=== PATIENT | female | born 1960 | race Caucasian/White ===

== ENCOUNTER 2016-05-25 10:56 | Inpatient (IN) | payer MEDICARE, MEDICAID ==
[~2016-05-25] VITALS: Ht 162.6 cm; Wt 90.2 kg
[~2016-05-25 10:56] MED LIST: FERR325T20 PO; PARO20TA4 PO; RANI150C PO
[2016-05-25 13:20] VITALS: BP 119/73
[2016-05-25 13:30] VITALS: BP 119/73
[2016-05-25 13:35] VITALS: BP 119/73
[2016-05-25] MEDS ORDERED: DOCUSATE 100 MG CAPSULE PO PRN (15:00)
[2016-05-25] MEDS: PLEASE ENTER HEIGHT AND WEIGHT MC SCH ×2 (15:00→16:22)
[2016-05-25] MEDS ORDERED: ONDANSETRON 2MG/ML, 2ML IVP PRN (15:00)
[2016-05-25 18:43] VITALS: BP 116/72
[2016-05-25] MEDS: FERROUS SULFATE 325 MG TABLET PO SCH (20:50)
[2016-05-26 03:54] VITALS: BP 118/71
[2016-05-26 05:39] LABS: HEMOGLOBIN 9.5 g/dL (11.7-16.4)
[2016-05-26 06:07] LABS: ASPARTATE AMINO TRANSFERASE 8 U/L (15-37); BLOOD UREA NITROGEN 54 mg/dL (7-18); TOTAL IRON BINDING CAPACITY 153 mcg/dL (250-450)
[2016-05-26 06:48] VITALS: BP 101/67
[2016-05-26] MEDS: PLEASE ENTER HEIGHT AND WEIGHT MC SCH ×2 (07:00→10:24)
[2016-05-26] MEDS: FERROUS SULFATE 325 MG TABLET PO SCH ×2 (07:47→20:35)
[2016-05-26] MEDS: ENOXAPARIN 30 MG/0.3 ML SQ SCH (07:48)
[2016-05-26] MEDS: FAMOTIDINE 20 MG TABLET PO SCH (07:48)
[2016-05-26] MEDS: PAROXETINE 20 MG TABLET PO SCH (07:48)
[2016-05-26] MEDS ORDERED: ARANESP 60 MCG/ML **ESRD SQ SCH (10:30)
[2016-05-26] MEDS ORDERED: NALOXONE 1 MG/ML, 2ML ONE (10:33)
[2016-05-26] MEDS ORDERED: FENTANYL PF 100 MCG/2ML ONE (10:33)
[2016-05-26] MEDS ORDERED: MIDAZOLAM 1 MG/ML, 5ML ONE (10:33)
[2016-05-26] MEDS ORDERED: FLUMAZENIL 0.1 MG/1 ML, 5ML ONE (10:34)
[2016-05-26] MEDS ORDERED: LIDOCAINE 2%, 20ML ONE (10:41)
[2016-05-26] MEDS ORDERED: CEFAZOLIN PMX 1GM/50ML 50 ML ONE (10:56)
[2016-05-26 12:45] VITALS: BP 125/79
[2016-05-26 13:53] LABS: HEP B SURF. AB 3.9 mIU/mL (0.0-10.0)
[2016-05-26 19:34] VITALS: BP 93/67
[2016-05-27 00:50] VITALS: BP 103/69
[2016-05-27 05:25] LABS: BLOOD UREA NITROGEN 39 mg/dL (7-18)
[2016-05-27 05:31] LABS: ASPARTATE AMINO TRANSFERASE 9 U/L (15-37); TOTAL IRON BINDING CAPACITY 176 mcg/dL (250-450)
[2016-05-27 06:45] VITALS: BP 106/74
[2016-05-27] MEDS: ENOXAPARIN 30 MG/0.3 ML SQ SCH (08:53)
[2016-05-27] MEDS: PAROXETINE 20 MG TABLET PO SCH (08:53)
[2016-05-27] MEDS: IRON SUCROSE COMPLEX 100MG/5ML IV SCH (08:53)
[2016-05-27] MEDS: FAMOTIDINE 20 MG TABLET PO SCH (08:53)
[2016-05-27 12:54] VITALS: BP 110/53
[2016-05-27 18:35] VITALS: BP 90/63
[2016-05-28 00:09] VITALS: BP 91/66
[2016-05-28 05:46] LABS: HEMOGLOBIN 10.9 g/dL (11.7-16.4)
[2016-05-28 05:58] LABS: ASPARTATE AMINO TRANSFERASE 9 U/L (15-37); BLOOD UREA NITROGEN 28 mg/dL (7-18)
[2016-05-28 06:48] VITALS: BP 93/66
[2016-05-28] MEDS: PAROXETINE 20 MG TABLET PO SCH (08:41)
[2016-05-28] MEDS: IRON SUCROSE COMPLEX 100MG/5ML IV SCH (08:41)
[2016-05-28] MEDS: ENOXAPARIN 30 MG/0.3 ML SQ SCH (08:41)
[2016-05-28] MEDS: FAMOTIDINE 20 MG TABLET PO SCH (08:41)
[2016-05-28] MEDS: HYDROcodone/APAP 5/325 TABLET PO PRN (09:14)
[2016-05-28 13:50] VITALS: BP 85/54
[2016-05-28 20:00] VITALS: BP 93/60
[2016-05-29 01:43] VITALS: BP 102/70
[2016-05-29 05:17] LABS: HEMOGLOBIN 10.6 g/dL (11.7-16.4)
[2016-05-29 05:33] LABS: BLOOD UREA NITROGEN 25 mg/dL (7-18)
[2016-05-29 06:40] VITALS: BP 81/56
[2016-05-29] MEDS: IRON SUCROSE COMPLEX 100MG/5ML IV SCH (08:30)
[2016-05-29] MEDS: PAROXETINE 20 MG TABLET PO SCH (09:52)
[2016-05-29] MEDS: ENOXAPARIN 30 MG/0.3 ML SQ SCH (09:52)
[2016-05-29] MEDS: FAMOTIDINE 20 MG TABLET PO SCH (09:52)
[2016-05-29 12:40] VITALS: BP 92/59
[2016-05-29 20:59] VITALS: BP 112/73
[2016-05-30 01:44] VITALS: BP 99/59
[2016-05-30 05:05] LABS: HEMOGLOBIN 10.3 g/dL (11.7-16.4)
[2016-05-30 05:24] LABS: BLOOD UREA NITROGEN 35 mg/dL (7-18)
[2016-05-30] MEDS ORDERED: THROMBIN 5,000 UNIT VIAL TP ONE ×2 (06:09→09:17)
[2016-05-30] MEDS ORDERED: BUPIVACAINE/PF 0.5% ONE ×2 (06:09→08:37)
[2016-05-30] MEDS ORDERED: PROTAMINE SULFATE 10 MG/ML, 5ML ONE (06:09)
[2016-05-30] MEDS ORDERED: HEPARIN 1,000 UNITS/ML, 10ML ONE (06:09)
[2016-05-30] MEDS ORDERED: FENTANYL PF 250 MCG/5ML ONE (06:59)
[2016-05-30] MEDS ORDERED: MIDAZOLAM 1 MG/ML, 2ML ONE (06:59)
[2016-05-30] MEDS ORDERED: ONDANSETRON 2MG/ML, 2ML IVPush PRN (07:30)
[2016-05-30] MEDS ORDERED: EPHEDRINE 50 MG/ML, 1ML IVPush PRN (07:30)
[2016-05-30] MEDS ORDERED: OXYcodone 5 MG/5 ML ORAL.SOL UDC PO PRN (07:30)
[2016-05-30] MEDS ORDERED: PROMETHAZINE 25 MG/ML, 1ML IV PRN (07:30)
[2016-05-30] MEDS ORDERED: LABETALOL 5MG/ML, 20ML IV PRN (07:30)
[2016-05-30] MEDS ORDERED: HYDROcodone/APAP 7.5-325MG/15ML UDC PO PRN (07:30)
[2016-05-30] MEDS ORDERED: hydrALAzine 20 MG/ML, 1ML IV PRN (07:30)
[2016-05-30] MEDS ORDERED: HYDROmorphone 1 MG/ML, 1ML IV PRN (07:30)
[2016-05-30] MEDS ORDERED: ACETAMINOPHEN 325 MG TABLET PO PRN (07:30)
[2016-05-30] MEDS ORDERED: FENTANYL PF 100 MCG/2ML ONE (10:34)
[2016-05-30] MEDS ORDERED: OXYcodone 5 MG/5 ML ORAL.SOL UDC ONE (10:35)
[2016-05-30] MEDS: FENTANYL PF 100 MCG/2ML IV PRN ×2 (10:39→10:50)
[2016-05-30] MEDS: PAROXETINE 20 MG TABLET PO SCH (12:07)
[2016-05-30] MEDS: FAMOTIDINE 20 MG TABLET PO SCH (12:07)
[2016-05-30] MEDS: ENOXAPARIN 30 MG/0.3 ML SQ SCH (12:08)
[2016-05-30 12:56] VITALS: BP 111/76
[2016-05-30] MEDS: HYDROcodone/APAP 5/325 TABLET PO PRN ×3 (13:19→23:27)
[2016-05-30] MEDS: MORPHINE SULFATE 4 MG/ML, 1ML IVPush PRN ×3 (14:36→20:01)
[2016-05-30] MEDS ORDERED: PHENYLEPHRINE 10 MG/ML ONE (15:54)
[2016-05-30] MEDS ORDERED: PROPOFOL 10 MG/ML, 20ML ONE (15:54)
[2016-05-30] MEDS ORDERED: ONDANSETRON 2MG/ML, 2ML ONE (15:54)
[2016-05-30] MEDS ORDERED: CEFAZOLIN 1,000 MG ONE (15:54)
[2016-05-30 20:08] VITALS: BP 123/83
[2016-05-31 03:56] VITALS: BP 107/72
[2016-05-31] MEDS: MORPHINE SULFATE 4 MG/ML, 1ML IVPush PRN (05:44)
[2016-05-31 05:57] LABS: HEMOGLOBIN 9.7 g/dL (11.7-16.4)
[2016-05-31 06:18] LABS: BLOOD UREA NITROGEN 40 mg/dL (7-18)
[2016-05-31 07:48] VITALS: BP 108/62
[2016-05-31] MEDS: ENOXAPARIN 30 MG/0.3 ML SQ SCH (15:04)
[2016-05-31] MEDS: PAROXETINE 20 MG TABLET PO SCH (15:04)
[2016-05-31] MEDS: FAMOTIDINE 20 MG TABLET PO SCH (15:04)
[2016-05-31] MEDS: HYDROcodone/APAP 5/325 TABLET PO PRN (15:04)
[2016-05-31] MEDS ORDERED: FERROUS SULFATE 325 MG TABLET PO SCH (17:00)
[2016-05-31] MEDS ORDERED: PNEUMOCOCCAL 23 VACCINE IM-VACC ONE (17:00)
== END 2016-06-01 02:17 | disposition home or self-care (01) | DRG 264 ==
LOC: EDSTATUS 11:07 → 4EST 13:08
PROVIDERS: ADMIT Hospitalist
PROC: 0T9B70Z Drainage of Bladder with Drainage Device, Via Natural or Artificial Opening (ICD-10-PCS; 2016-05-25)
PROC: 05HM33Z Insertion of Infusion Device into Right Internal Jugular Vein, Percutaneous Approach (ICD-10-PCS; 2016-05-26)
PROC: B543ZZA Ultrasonography of Right Jugular Veins, Guidance (ICD-10-PCS; 2016-05-26)
PROC: 5A1D60Z (ICD-10-PCS; 2016-05-26)
PROC: 0WPG03Z Removal of Infusion Device from Peritoneal Cavity, Open Approach (ICD-10-PCS; 2016-05-30)
PROC: 03170ZD Bypass Right Brachial Artery to Upper Arm Vein, Open Approach (ICD-10-PCS; principal; 2016-05-30 07:00)
DX: T82.42XA Displacement of vascular dialysis catheter, initial encounter (principal); N18.6 End stage renal disease; G93.40 Encephalopathy, unspecified; E87.2 Acidosis; E46 Unspecified protein-calorie malnutrition; E87.1 Hypo-osmolality and hyponatremia; E44.0 Moderate protein-calorie malnutrition; I12.0 Hypertensive chronic kidney disease with stage 5 chronic kidney disease or end stage renal disease; D50.9 Iron deficiency anemia, unspecified; D63.1 Anemia in chronic kidney disease; E78.5 Hyperlipidemia, unspecified; E87.70 Fluid overload, unspecified; F17.210 Nicotine dependence, cigarettes, uncomplicated; F32.9 Major depressive disorder, single episode, unspecified; K21.9 Gastro-esophageal reflux disease without esophagitis; Z59.0 Homelessness; Z85.71 Personal history of Hodgkin lymphoma; Z68.34 Body mass index [BMI] 34.0-34.9, adult; Z92.21 Personal history of antineoplastic chemotherapy; Z99.2 Dependence on renal dialysis; Z85.72 Personal history of non-Hodgkin lymphomas; Z23 Encounter for immunization
CPT/HCPCS: 36415; 36558; 71010; 76937; 77001; 80053; 80069; 81001; 82306; 82728; 83540; 83550; 83735; 83970; 84100; 84550; 85025; 86704; 86706; 87086; 87340; 90732; 93005; 93990; J0690; J1644; J1650; J1756; J2250; J2405; J2704; J2720; J3010; J3490; C1750; J0882; J1642; J2310; J2370